=== PATIENT | female | born 1985 | race Caucasian/White ===

== ENCOUNTER 2020-03-16 19:24 | Emergency (ER) | payer SELFPAY ==
[~2020-03-16] VITALS: Ht 172.7 cm; Wt 56.7 kg
[2020-03-16 19:26] VITALS: Ht 172.7 cm; Wt 56.7 kg
[2020-03-16 21:52] VITALS: BP 119/69
== END 2020-03-16 21:52 | disposition home or self-care (01) ==
LOC: ED 19:24
DX: L03.116 Cellulitis of left lower limb (principal); R51.9 Headache, unspecified; F17.210 Nicotine dependence, cigarettes, uncomplicated; Z71.6 Tobacco abuse counseling

== ENCOUNTER → 2020-03-18 16:13 | Emergency (ER) | payer SELFPAY | END | disposition left against medical advice (07) | LOC: ED 16:13 | DX: R51.9 Headache, unspecified (principal); L03.116 Cellulitis of left lower limb; F17.210 Nicotine dependence, cigarettes, uncomplicated ==